=== PATIENT | female | born 1965 | race African-American/Black ===

== ENCOUNTER 2023-05-08 05:19 | Inpatient (IN) | payer OTHER ==
[2023-05-08] VITALS (46 sets, daily range): BP systolic 62–145; BP diastolic 32–89; PULSE 8–119; RESP 0–21; TEMP 94.9–103.1; O2SAT 93–100
[~2023-05-08] VITALS: Ht 157.5 cm; Wt 80.0 kg
[2023-05-08] MEDS ORDERED: CALCIUM GLUC 1,000mg/50ml-NS 50 ML IV ONE (05:30)
[2023-05-08] MEDS ORDERED: InsuLIN REG 1unit/0.01ml Soln (100units/ml) ONE (05:34)
[2023-05-08] MEDS ORDERED: EPINEPHrine HCL 250 ML IV ONE (05:44)
[2023-05-08] MEDS ORDERED: EPINEPHrine HCL 250 ML IV SCH (05:45)
[2023-05-08 05:48] LABS: Mean Corpuscular Hemoglobin 29.9 pg (28.0-32.0); Monocytes # (auto) 0.6 10 ^3/uL (0-1.3); White Blood Cell 8.3 10^3/uL (4.4-10.8)
[2023-05-08 05:49] LABS: Basophils # (auto) 0.3 10 ^3/uL (0-0.2); Basophils % (auto) 3.4 % (0.0-2.0); Eosinophils # (auto) 0.2 10 ^3/uL (0-0.8); Eosinophils % (auto) 1.8 % (0.0-7.0); Hematocrit 20.2 % (36.0-46.0); Lymphocytes # (auto) 2.8 10 ^3/uL (0.4-5.4); Lymphocytes % (auto) 33.6 % (10.0-50.0); Mean Corpuscular Hgb Conc. 30.2 g/dL (32.0-36.0); Mean Corpuscular Volume 98.7 fL (80.0-100.0); Monocytes % (auto) 7.5 % (0.0-12.0); Neutrophils # (auto) 4.5 10 ^3/uL (1.6-8.6); Neutrophils % (auto) 53.7 % (37.0-80.0); Nucleated Red Blood Cells % 0.2 %; Red Blood Cells 2.05 10^6/uL (4.0-5.20); Red Cell Distribution Width 20.3 % (11.8-14.3)
[2023-05-08 05:51] LABS: Hemoglobin 6.1 g/dL (12.2-16.2)
[2023-05-08] MEDS: EPINEPHrine HCL 250 ML IV SCH ×2 (05:52→09:14)
[2023-05-08] MEDS ORDERED: InsuLIN REG 1unit/0.01ml Soln (100units/ml) IV ONE (06:00)
[2023-05-08 06:04] LABS: Albumin 3.2 g/dL (3.2-4.8); Alkaline Phosphatase 136 U/L (46-116); Anion Gap 12 (5-15); Aspartate Aminotransferase 35 U/L (13-40); BUN/Creatinine Ratio 5.7 (10.0-20.0); Blood Urea Nitrogen 24 mg/dL (9-23); Calcium 10.5 mg/dL (8.7-10.4); Carbon Dioxide 30 mmol/L (20-30); Chloride 102 mmol/L (98-107); Glucose 203 mg/dL (74-106); Potassium 4.2 mmol/L (3.5-5.1); Sodium 144 mmol/L (136-145)
[2023-05-08 06:05] LABS: Bilirubin, Total 0.2 mg/dL (0.2-1.0); Total Protein 6.6 g/dL (5.7-8.2)
[2023-05-08] MEDS ORDERED: DOPamine 1600MCG/ML D5W 250 ML IV ONE (06:15)
[2023-05-08 06:22] LABS: Alanine Aminotransferase < 9 U/L (7-40)
[2023-05-08] MEDS ORDERED: NOREPINEPHRINE 8 MG/250ML KIT 250 ML IV ONE (06:25)
[2023-05-08] MEDS: NOREPINEPHRINE 8 MG/250ML KIT 250 ML IV SCH (06:30)
[2023-05-08] MEDS ORDERED: MORPHINE SULFATE INJ 2 MG/ml SYRG IV PRN (10:00)
[2023-05-08] MEDS ORDERED: NITROGLYCERIN 0.4 MG SL TAB SL PRN (10:00)
[2023-05-08 10:09] LABS: Base Excess 4.2 mmol/L (-2.0-2.0)
[2023-05-08] MEDS ORDERED: PANTOPRAZOLE 40 MG/10 ML VIAL INJ IV ONE (10:15)
[2023-05-08 10:54] LABS: Triglycerides 76 mg/dL (< 150)
[2023-05-08 10:55] LABS: LDL Cholesterol 56 mg/dL (< 100)
[2023-05-08 10:56] LABS: Cholesterol 122 mg/dL (< 200); HDL Cholesterol 46 mg/dL (40-59)
[2023-05-08 11:27] LABS: % Iron Saturation 49.7 % (15-50)
[2023-05-08 11:30] LABS: Folate (Folic Acid) 7.5 ng/mL (>5.38)
[2023-05-08] MEDS: DOPamine 1600MCG/ML D5W 250 ML IV SCH ×2 (11:59→16:08)
[2023-05-08] MEDS ORDERED: HEPARIN SODIUM (PORCINE) 5000 UNITS/ML 1ML VIAL SC SCH (14:00)
[2023-05-08] MEDS ORDERED: AZITHROMYCIN 500MG/ 250ML 250 ML IV SCH (14:45)
[2023-05-08] MEDS ORDERED: cefTRIAXone 1GM/50ML D5W 50 ML IV SCH (14:45)
[2023-05-08 15:38] LABS: INR 1.26 (0.9-1.15)
[2023-05-08 17:29] LABS: Anisocytosis Slight; Platelet Estimate Adequate
[2023-05-08 18:28] LABS: Basophils # (auto) 0.1 10 ^3/uL (0-0.2); Basophils % (auto) 0.8 % (0.0-2.0); Eosinophils # (auto) 0 10 ^3/uL (0-0.8); Eosinophils % (auto) 0.1 % (0.0-7.0); Hematocrit 27.2 % (36.0-46.0); Hemoglobin 9.1 g/dL (12.2-16.2); Lymphocytes # (auto) 0.4 10 ^3/uL (0.4-5.4); Lymphocytes % (auto) 4.2 % (10.0-50.0); Mean Corpuscular Hemoglobin 29.9 pg (28.0-32.0); Mean Corpuscular Hgb Conc. 33.4 g/dL (32.0-36.0); Mean Corpuscular Volume 89.5 fL (80.0-100.0); Monocytes # (auto) 0.6 10 ^3/uL (0-1.3); Monocytes % (auto) 6.9 % (0.0-12.0); Neutrophils # (auto) 8.2 10 ^3/uL (1.6-8.6); Red Blood Cells 3.04 10^6/uL (4.0-5.20); Red Cell Distribution Width 17.9 % (11.8-14.3); White Blood Cell 9.4 10^3/uL (4.4-10.8)
[2023-05-08] MEDS ORDERED: PIPERACILLIN-TAZOB 2.25GM 50 ML IV SCH (22:00)
[2023-05-08] MEDS ORDERED: PIPERACILLIN-TAZOB 3.375GM 100 ML IV SCH (22:00)
[2023-05-09] VITALS (113 sets, daily range): BP systolic 78–189; BP diastolic 50–108; PULSE 52–78; RESP 0–16; TEMP 95.5–97.7; O2SAT 96–100
[2023-05-09 00:48] LABS: Basophils # (auto) 0.1 10 ^3/uL (0-0.2); Basophils % (auto) 0.6 % (0.0-2.0); Eosinophils # (auto) 0 10 ^3/uL (0-0.8); Eosinophils % (auto) 0.1 % (0.0-7.0); Hematocrit 26.1 % (36.0-46.0); Hemoglobin 8.8 g/dL (12.2-16.2); Lymphocytes # (auto) 0.5 10 ^3/uL (0.4-5.4); Lymphocytes % (auto) 4.4 % (10.0-50.0); Mean Corpuscular Hemoglobin 30.3 pg (28.0-32.0); Mean Corpuscular Hgb Conc. 33.7 g/dL (32.0-36.0); Mean Corpuscular Volume 89.7 fL (80.0-100.0); Monocytes # (auto) 0.5 10 ^3/uL (0-1.3); Monocytes % (auto) 4.5 % (0.0-12.0); Neutrophils # (auto) 9.7 10 ^3/uL (1.6-8.6); Neutrophils % (auto) 90.4 % (37.0-80.0); Nucleated Red Blood Cells % 0.1 %; Red Cell Distribution Width 18.4 % (11.8-14.3); White Blood Cell 10.7 10^3/uL (4.4-10.8)
[2023-05-09 01:01] LABS: Albumin 3.2 g/dL (3.2-4.8); Alkaline Phosphatase 122 U/L (46-116); Anion Gap 9 (5-15); Aspartate Aminotransferase 56 U/L (13-40); BUN/Creatinine Ratio 6.5 (10.0-20.0); Bilirubin, Total 0.3 mg/dL (0.2-1.0); Blood Urea Nitrogen 31 mg/dL (9-23); Calcium 8.1 mg/dL (8.5-10.1); Carbon Dioxide 28 mmol/L (20-30); Chloride 101 mmol/L (98-107); Glucose 174 mg/dL (74-106); Potassium 4.1 mmol/L (3.5-5.1); Sodium 138 mmol/L (136-145); Total Protein 6.7 g/dL (5.7-8.2)
[2023-05-09 01:02] LABS: Alanine Aminotransferase < 9 U/L (7-40)
[2023-05-09] MEDS ORDERED: DexAMETHasone SOD PHOS 10MG/1ML VIAL INJ IV ONE (04:45)
[2023-05-09] MEDS ORDERED: MANNITOL 20% SOLN 100 gm/500ml 300 ML IV ONE (04:45)
[2023-05-09] MEDS ORDERED: MANNITOL 20 % (20GM/100ML) 500 ML IV ONE (05:07)
[2023-05-09 06:46] LABS: Basophils # (auto) 0.1 10 ^3/uL (0-0.2); Eosinophils # (auto) 0 10 ^3/uL (0-0.8); Eosinophils % (auto) 0.2 % (0.0-7.0); Monocytes # (auto) 0.4 10 ^3/uL (0-1.3)
[2023-05-09 06:49] LABS: Basophils % (auto) 0.6 % (0.0-2.0); Hematocrit 21.2 % (36.0-46.0); Hemoglobin 7.2 g/dL (12.2-16.2); Lymphocytes # (auto) 0.3 10 ^3/uL (0.4-5.4); Lymphocytes % (auto) 3.5 % (10.0-50.0); Mean Corpuscular Hemoglobin 30.2 pg (28.0-32.0); Mean Corpuscular Hgb Conc. 33.9 g/dL (32.0-36.0); Mean Corpuscular Volume 89.1 fL (80.0-100.0); Monocytes % (auto) 3.9 % (0.0-12.0); Neutrophils % (auto) 91.8 % (37.0-80.0); Red Blood Cells 2.38 10^6/uL (4.0-5.20); Red Cell Distribution Width 18.2 % (11.8-14.3); White Blood Cell 9.8 10^3/uL (4.4-10.8)
[2023-05-09] MEDS ORDERED: SODIUM CHL 0.9% 1000 ML BAG XX ONE (07:00)
[2023-05-09] MEDS ORDERED: MAGNESIUM SULFATE 1GM/100ML 100 ML IV ONE (07:00)
[2023-05-09 07:05] LABS: Albumin 2.6 g/dL (3.2-4.8); Alkaline Phosphatase 109 U/L (46-116); Anion Gap 8 (5-15); Aspartate Aminotransferase 60 U/L (13-40); BUN/Creatinine Ratio 7.1 (10.0-20.0); Bilirubin, Total 0.2 mg/dL (0.2-1.0); Blood Urea Nitrogen 35 mg/dL (9-23); Calcium 7.3 mg/dL (8.7-10.4); Carbon Dioxide 29 mmol/L (20-30); Chloride 99 mmol/L (98-107); Glucose 165 mg/dL (74-106); Sodium 136 mmol/L (136-145)
[2023-05-09 07:06] LABS: Alanine Aminotransferase < 9 U/L (7-40); Total Protein 5.6 g/dL (5.7-8.2)
[2023-05-09 08:45] LABS: Base Excess 3.1 mmol/L (-2.0-2.0)
[2023-05-09] MEDS ORDERED: VANCOMYCIN 1GM/250ML 250 ML IV ONE ×3 (09:00→17:00)
[2023-05-09] MEDS ORDERED: VANCOMYCIN PER PHARMACY 0 MG IV SCH (09:00)
[2023-05-09] MEDS ORDERED: HEPARIN SODIUM (PORCINE) 5000 UNITS/ML 1ML VIAL SC SCH (10:00)
[2023-05-09] MEDS ORDERED: PANTOPRAZOLE 40 MG/10 ML VIAL INJ IV SCH (10:00)
[2023-05-09] MEDS ORDERED: ALBUMIN 25% 100 ML IV SCH (11:45)
[2023-05-09 12:45] LABS: Basophils # (auto) 0 10 ^3/uL (0-0.2); Basophils % (auto) 0.3 % (0.0-2.0); Eosinophils # (auto) 0 10 ^3/uL (0-0.8); Hematocrit 23.2 % (36.0-46.0); Hemoglobin 7.7 g/dL (12.2-16.2); Lymphocytes # (auto) 0.2 10 ^3/uL (0.4-5.4); Lymphocytes % (auto) 2.5 % (10.0-50.0); Mean Corpuscular Hemoglobin 29.9 pg (28.0-32.0); Mean Corpuscular Hgb Conc. 33.3 g/dL (32.0-36.0); Mean Corpuscular Volume 89.7 fL (80.0-100.0); Monocytes # (auto) 0.2 10 ^3/uL (0-1.3); Monocytes % (auto) 2.5 % (0.0-12.0); Neutrophils % (auto) 94.7 % (37.0-80.0); Red Blood Cells 2.58 10^6/uL (4.0-5.20); Red Cell Distribution Width 18.6 % (11.8-14.3); White Blood Cell 9.5 10^3/uL (4.4-10.8)
[2023-05-09] MEDS: PANTOPRAZOLE 40 MG/10 ML VIAL INJ IV SCH (15:30)
[2023-05-09] MEDS: PIPERACILLIN-TAZOB 3.375GM 100 ML IV SCH (15:31)
[2023-05-09 19:10] LABS: Basophils # (auto) 0 10 ^3/uL (0-0.2); Eosinophils # (auto) 0 10 ^3/uL (0-0.8); Hemoglobin 7.4 g/dL (12.2-16.2); Lymphocytes # (auto) 0.4 10 ^3/uL (0.4-5.4); Mean Corpuscular Volume 89.4 fL (80.0-100.0); Nucleated Red Blood Cells % 0.1 %
[2023-05-09 19:11] LABS: Basophils % (auto) 0.3 % (0.0-2.0); Lymphocytes % (auto) 4.1 % (10.0-50.0); Mean Corpuscular Hemoglobin 30.1 pg (28.0-32.0); Mean Corpuscular Hgb Conc. 33.7 g/dL (32.0-36.0); Monocytes # (auto) 0.4 10 ^3/uL (0-1.3); Neutrophils # (auto) 9.7 10 ^3/uL (1.6-8.6); Neutrophils % (auto) 91.6 % (37.0-80.0); Red Blood Cells 2.46 10^6/uL (4.0-5.20); Red Cell Distribution Width 18.4 % (11.8-14.3); White Blood Cell 10.6 10^3/uL (4.4-10.8)
[2023-05-09] MEDS ORDERED: EPOETIN ALFA-EPBX 10,000 UNIT/1ML VIAL SC ONE (21:00)
[2023-05-09] MEDS: DOPamine 1600MCG/ML D5W 250 ML IV SCH (21:05)
[2023-05-10] VITALS (115 sets, daily range): BP systolic 73–154; BP diastolic 36–78; PULSE 55–83; RESP 0–14; TEMP 97–98.6; O2SAT 96–100
[2023-05-10 04:31] LABS: Alkaline Phosphatase 129 U/L (46-116); Anion Gap 9 (5-15); Aspartate Aminotransferase 121 U/L (13-40); BUN/Creatinine Ratio 6.9 (10.0-20.0); Bilirubin, Total 0.2 mg/dL (0.2-1.0); Blood Urea Nitrogen 29 mg/dL (9-23); Calcium 7.8 mg/dL (8.7-10.4); Carbon Dioxide 29 mmol/L (20-30); Chloride 99 mmol/L (98-107); Glucose 116 mg/dL (74-106); Magnesium 1.8 mg/dL (1.6-2.6); Sodium 137 mmol/L (136-145); Total Protein 6.1 g/dL (5.7-8.2)
[2023-05-10 04:37] LABS: Alanine Aminotransferase < 9 U/L (7-40)
[2023-05-10 04:48] LABS: INR 1.19 (0.9-1.15); Partial Thromboplastin Time 33.8 SEC (24.5-34.5); Prothrombin Time 12.4 sec (9.3-11.8)
[2023-05-10 04:50] LABS: Triglycerides 160 mg/dL (< 150)
[2023-05-10 04:51] LABS: LDL Cholesterol 47 mg/dL (< 100)
[2023-05-10 04:52] LABS: Cholesterol 116 mg/dL (< 200); HDL Cholesterol 38 mg/dL (40-59)
[2023-05-10 05:05] LABS: Lipase 32 U/L (12-53)
[2023-05-10] MEDS: PIPERACILLIN-TAZOB 3.375GM 100 ML IV SCH ×2 (05:35→17:13)
[2023-05-10] MEDS: EPINEPHrine HCL 250 ML IV SCH (06:00)
[2023-05-10] MEDS: NOREPINEPHRINE 8 MG/250ML KIT 250 ML IV SCH (06:30)
[2023-05-10 08:16] LABS: Base Excess 3.1 mmol/L (-2.0-2.0)
[2023-05-10] MEDS ORDERED: VANCOMYCIN 1GM/250ML 250 ML IV ONE (11:00)
[2023-05-10] MEDS: DOPamine 1600MCG/ML D5W 250 ML IV SCH (13:45)
[2023-05-10] MEDS ORDERED: CEFEPIME 2GM/50ML NS 50 ML IV SCH (17:00)
[2023-05-10] MEDS: PANTOPRAZOLE 40 MG/10 ML VIAL INJ IV SCH (17:13)
[2023-05-10] MEDS ORDERED: ACETAMINOPHEN 325 MG TAB PO ONE (19:00)
[2023-05-11] VITALS (124 sets, daily range): BP systolic 73–195; BP diastolic 39–80; PULSE 56–77; RESP 0–16; TEMP 95.4–99.1; O2SAT 91–100
[2023-05-11 04:14] LABS: Basophils # (auto) 0.1 10 ^3/uL (0-0.2); Eosinophils # (auto) 0.6 10 ^3/uL (0-0.8); Hematocrit 20.3 % (36.0-46.0); Lymphocytes # (auto) 0.8 10 ^3/uL (0.4-5.4); Mean Corpuscular Volume 91.5 fL (80.0-100.0)
[2023-05-11 04:16] LABS: Basophils % (auto) 1.3 % (0.0-2.0); Eosinophils % (auto) 5.1 % (0.0-7.0); Lymphocytes % (auto) 7.5 % (10.0-50.0); Mean Corpuscular Hemoglobin 30.5 pg (28.0-32.0); Mean Corpuscular Hgb Conc. 33.3 g/dL (32.0-36.0); Monocytes # (auto) 0.8 10 ^3/uL (0-1.3); Monocytes % (auto) 7.2 % (0.0-12.0); Neutrophils # (auto) 8.8 10 ^3/uL (1.6-8.6); Neutrophils % (auto) 78.9 % (37.0-80.0); Nucleated Red Blood Cells % 0.1 %; Red Blood Cells 2.22 10^6/uL (4.0-5.20); Red Cell Distribution Width 18.4 % (11.8-14.3); White Blood Cell 11.1 10^3/uL (4.4-10.8)
[2023-05-11 04:23] LABS: Hemoglobin 6.8 g/dL (12.2-16.2)
[2023-05-11 04:42] LABS: Alkaline Phosphatase 156 U/L (46-116); Anion Gap 8 (5-15); Aspartate Aminotransferase 314 U/L (13-40); BUN/Creatinine Ratio 6.9 (10.0-20.0); Bilirubin, Total 0.3 mg/dL (0.2-1.0); Blood Urea Nitrogen 36 mg/dL (9-23); Carbon Dioxide 30 mmol/L (20-30); Chloride 99 mmol/L (98-107); Glucose 99 mg/dL (74-106); Magnesium 1.8 mg/dL (1.6-2.6); Potassium 3.7 mmol/L (3.5-5.1); Sodium 137 mmol/L (136-145); Total Protein 6.2 g/dL (5.7-8.2)
[2023-05-11 04:51] LABS: Alanine Aminotransferase < 9 U/L (7-40)
[2023-05-11] MEDS: PIPERACILLIN-TAZOB 3.375GM 100 ML IV SCH ×2 (05:18→17:52)
[2023-05-11] MEDS: EPINEPHrine HCL 250 ML IV SCH (06:00)
[2023-05-11] MEDS: DOPamine 1600MCG/ML D5W 250 ML IV SCH ×2 (06:25→23:05)
[2023-05-11] MEDS: NOREPINEPHRINE 8 MG/250ML KIT 250 ML IV SCH (06:30)
[2023-05-11] MEDS ORDERED: SODIUM CHL 0.9% 1000 ML BAG XX ONE (07:00)
[2023-05-11 09:41] LABS: Base Excess 4.5 mmol/L (-2.0-2.0)
[2023-05-11] MEDS ORDERED: VANCOMYCIN 500 MG in D5W 5% 100 ML IV ONE (13:00)
[2023-05-11 13:12] LABS: Basophils # (auto) 0.2 10 ^3/uL (0-0.2); Hemoglobin 7.1 g/dL (12.2-16.2); Monocytes # (auto) 1.1 10 ^3/uL (0-1.3)
[2023-05-11 13:13] LABS: Basophils % (auto) 1.2 % (0.0-2.0); Eosinophils # (auto) 0.8 10 ^3/uL (0-0.8); Eosinophils % (auto) 6.1 % (0.0-7.0); Hematocrit 21.9 % (36.0-46.0); Lymphocytes # (auto) 0.8 10 ^3/uL (0.4-5.4); Lymphocytes % (auto) 6.2 % (10.0-50.0); Mean Corpuscular Hemoglobin 29.5 pg (28.0-32.0); Mean Corpuscular Hgb Conc. 32.3 g/dL (32.0-36.0); Mean Corpuscular Volume 91.6 fL (80.0-100.0); Monocytes % (auto) 8.6 % (0.0-12.0); Neutrophils # (auto) 9.9 10 ^3/uL (1.6-8.6); Neutrophils % (auto) 77.9 % (37.0-80.0); Nucleated Red Blood Cells % 0.1 %; Red Cell Distribution Width 18.3 % (11.8-14.3); White Blood Cell 12.7 10^3/uL (4.4-10.8)
[2023-05-11] MEDS: PANTOPRAZOLE 40 MG/10 ML VIAL INJ IV SCH (17:52)
[2023-05-11] MEDS ORDERED: EPOETIN ALFA-EPBX 10,000 UNIT/1ML VIAL SC ONE (21:00)
[2023-05-12] VITALS (110 sets, daily range): BP systolic 78–146; BP diastolic 43–67; PULSE 65–84; RESP 0–19; TEMP 96.8–99.3; O2SAT 90–100
[2023-05-12 04:04] LABS: Alkaline Phosphatase 170 U/L (46-116); Anion Gap 7 (5-15); Aspartate Aminotransferase 450 U/L (13-40); Calcium 8.4 mg/dL (8.5-10.1); Carbon Dioxide 31 mmol/L (20-30); Chloride 102 mmol/L (98-107); Glucose 96 mg/dL (74-106); Potassium 3.7 mmol/L (3.5-5.1); Sodium 140 mmol/L (136-145)
[2023-05-12 04:05] LABS: Bilirubin, Total 0.4 mg/dL (0.2-1.0); Total Protein 6.3 g/dL (5.7-8.2)
[2023-05-12] MEDS: NOREPINEPHRINE 8 MG/250ML KIT 250 ML IV SCH ×2 (04:17→19:43)
[2023-05-12 04:33] LABS: Basophils # (auto) 0.1 10 ^3/uL (0-0.2); Basophils % (auto) 0.9 % (0.0-2.0); Hemoglobin 7.3 g/dL (12.2-16.2); Neutrophils # (auto) 10.2 10 ^3/uL (1.6-8.6); White Blood Cell 13.1 10^3/uL (4.4-10.8)
[2023-05-12 04:36] LABS: Eosinophils # (auto) 0.7 10 ^3/uL (0-0.8); Eosinophils % (auto) 5.4 % (0.0-7.0); Hematocrit 22.6 % (36.0-46.0); Lymphocytes # (auto) 0.8 10 ^3/uL (0.4-5.4); Lymphocytes % (auto) 6.5 % (10.0-50.0); Mean Corpuscular Hemoglobin 29.9 pg (28.0-32.0); Mean Corpuscular Hgb Conc. 32.5 g/dL (32.0-36.0); Mean Corpuscular Volume 91.9 fL (80.0-100.0); Monocytes # (auto) 1.3 10 ^3/uL (0-1.3); Monocytes % (auto) 9.5 % (0.0-12.0); Neutrophils % (auto) 77.7 % (37.0-80.0); Nucleated Red Blood Cells % 0.4 %; Red Blood Cells 2.46 10^6/uL (4.0-5.20); Red Cell Distribution Width 18.1 % (11.8-14.3)
[2023-05-12 04:45] LABS: Alanine Aminotransferase < 9 U/L (7-40); Blood Urea Nitrogen 23 mg/dL (9-23)
[2023-05-12 04:46] LABS: Magnesium 1.7 mg/dL (1.6-2.6)
[2023-05-12] MEDS: PIPERACILLIN-TAZOB 3.375GM 100 ML IV SCH ×2 (04:46→16:58)
[2023-05-12] MEDS: EPINEPHrine HCL 250 ML IV SCH (06:00)
[2023-05-12 07:06] LABS: Base Excess 6.2 mmol/L (-2.0-2.0)
[2023-05-12] MEDS: DOPamine 1600MCG/ML D5W 250 ML IV SCH (15:45)
[2023-05-12] MEDS: PANTOPRAZOLE 40 MG/10 ML VIAL INJ IV SCH (16:58)
[2023-05-13] VITALS (110 sets, daily range): BP systolic 79–185; BP diastolic 43–90; PULSE 63–84; RESP 0–20; TEMP 96.8–99.1; O2SAT 90–100
[2023-05-13 04:21] LABS: Basophils # (auto) 0.1 10 ^3/uL (0-0.2); Basophils % (auto) 0.9 % (0.0-2.0); Eosinophils # (auto) 0.8 10 ^3/uL (0-0.8); Monocytes # (auto) 1.5 10 ^3/uL (0-1.3); Neutrophils # (auto) 10.2 10 ^3/uL (1.6-8.6); Nucleated Red Blood Cells % 0.1 %; White Blood Cell 13.6 10^3/uL (4.4-10.8)
[2023-05-13 04:24] LABS: Eosinophils % (auto) 5.7 % (0.0-7.0); Hematocrit 22.9 % (36.0-46.0); Hemoglobin 7.6 g/dL (12.2-16.2); Mean Corpuscular Hemoglobin 30.5 pg (28.0-32.0); Mean Corpuscular Volume 92.6 fL (80.0-100.0); Neutrophils % (auto) 75.4 % (37.0-80.0); Red Blood Cells 2.47 10^6/uL (4.0-5.20); Red Cell Distribution Width 17.9 % (11.8-14.3)
[2023-05-13] MEDS: PIPERACILLIN-TAZOB 3.375GM 100 ML IV SCH ×2 (04:44→17:54)
[2023-05-13 04:45] LABS: Albumin 3.1 g/dL (3.2-4.8); Alkaline Phosphatase 277 U/L (46-116); Anion Gap 10 (5-15); Aspartate Aminotransferase 393 U/L (13-40); BUN/Creatinine Ratio 5.9 (10.0-20.0); Bilirubin, Total 0.4 mg/dL (0.2-1.0); Blood Urea Nitrogen 30 mg/dL (9-23); Calcium 8.4 mg/dL (8.7-10.4); Carbon Dioxide 29 mmol/L (20-30); Chloride 100 mmol/L (98-107); Glucose 62 mg/dL (74-106); Potassium 3.5 mmol/L (3.5-5.1); Sodium 139 mmol/L (136-145); Total Protein 6.5 g/dL (5.7-8.2)
[2023-05-13 04:57] LABS: Alanine Aminotransferase < 9 U/L (7-40)
[2023-05-13] MEDS: EPINEPHrine HCL 250 ML IV SCH (06:00)
[2023-05-13 07:20] LABS: Base Excess 3.8 mmol/L (-2.0-2.0)
[2023-05-13] MEDS: DOPamine 1600MCG/ML D5W 250 ML IV SCH (07:59)
[2023-05-13] MEDS ORDERED: TPN PER PHARMACY 0 ML IV SCH ×2 (14:15→20:00)
[2023-05-13 14:43] LABS: Magnesium 1.8 mg/dL (1.6-2.6)
[2023-05-13 14:45] LABS: Phosphorus 3.5 mg/dL (2.4-5.1)
[2023-05-13] MEDS: NOREPINEPHRINE 8 MG/250ML KIT 250 ML IV SCH (14:48)
[2023-05-13] MEDS ORDERED: POTASSIUM CHL 20MEQ/100ML 100 ML IV ONE (15:45)
[2023-05-13] MEDS ORDERED: MAGNESIUM SULFATE 1GM/100ML 100 ML IV ONE (15:55)
[2023-05-13] MEDS: MAGNESIUM SULFATE 1GM/100ML 100 ML IV SCH ×2 (16:27→17:53)
[2023-05-13] MEDS: PANTOPRAZOLE 40 MG/10 ML VIAL INJ IV SCH (17:54)
[2023-05-13] MEDS ORDERED: AMINO ACID INFUSION IN D10W 1,000 ML IV NR (20:00)
[2023-05-13] MEDS: InsuLIN REG 1unit/0.01ml Soln (100units/ml) SC SCH (23:35)
[2023-05-13] MEDS: ACCU-CHEK COMFORT CURVE STRIP VI SCH (23:35)
[2023-05-14] VITALS (108 sets, daily range): BP systolic 80–172; BP diastolic 44–105; PULSE 55–80; RESP 0–17; TEMP 96.6–97.9; O2SAT 94–100
[2023-05-14] MEDS ORDERED: DEXTROSE (50%) 50ML SYRG IV SCH
[2023-05-14] MEDS: DOPamine 1600MCG/ML D5W 250 ML IV SCH ×2 (01:05→17:45)
[2023-05-14 04:26] LABS: Alkaline Phosphatase 352 U/L (46-116); Anion Gap 9 (5-15); Aspartate Aminotransferase 315 U/L (13-40); BUN/Creatinine Ratio 6.3 (10.0-20.0); Blood Urea Nitrogen 37 mg/dL (9-23); Calcium 8.3 mg/dL (8.7-10.4); Carbon Dioxide 29 mmol/L (20-30); Chloride 99 mmol/L (98-107); Glucose 92 mg/dL (74-106); Magnesium 2.1 mg/dL (1.6-2.6); Potassium 3.6 mmol/L (3.5-5.1); Sodium 137 mmol/L (136-145)
[2023-05-14 04:27] LABS: Bilirubin, Total 0.4 mg/dL (0.2-1.0); Phosphorus 3.7 mg/dL (2.4-5.1); Total Protein 6.4 g/dL (5.7-8.2)
[2023-05-14 04:28] LABS: Alanine Aminotransferase < 9 U/L (7-40)
[2023-05-14 04:37] LABS: Triglycerides 94 mg/dL (< 150)
[2023-05-14] MEDS: PIPERACILLIN-TAZOB 3.375GM 100 ML IV SCH ×2 (05:14→19:49)
[2023-05-14] MEDS: NOREPINEPHRINE 8 MG/250ML KIT 250 ML IV SCH (05:21)
[2023-05-14] MEDS: ACCU-CHEK COMFORT CURVE STRIP VI SCH ×3 (05:36→19:37)
[2023-05-14] MEDS: EPINEPHrine HCL 250 ML IV SCH (05:37)
[2023-05-14] MEDS: InsuLIN REG 1unit/0.01ml Soln (100units/ml) SC SCH ×3 (05:37→18:00)
[2023-05-14 07:51] LABS: Base Excess 0.3 mmol/L (-2.0-2.0)
[2023-05-14] MEDS ORDERED: SODIUM CHL 0.9% 1000 ML BAG XX ONE (15:30)
[2023-05-14] MEDS ORDERED: VANCOMYCIN 500 MG in D5W 5% 100 ML IV ONE (17:00)
[2023-05-14] MEDS: PANTOPRAZOLE 40 MG/10 ML VIAL INJ IV SCH (19:44)
[2023-05-14] MEDS ORDERED: TPN PER PHARMACY IV NR ×10 (20:00)
[2023-05-14] MEDS ORDERED: EPOETIN ALFA-EPBX 10,000 UNIT/1ML VIAL SC ONE (21:00)
[2023-05-15] VITALS (114 sets, daily range): BP systolic 91–159; BP diastolic 47–81; PULSE 54–85; RESP 0–19; TEMP 96.8–99; O2SAT 93–100
[2023-05-15] MEDS: InsuLIN REG 1unit/0.01ml Soln (100units/ml) SC SCH ×4 (00:13→18:00)
[2023-05-15] MEDS: ACCU-CHEK COMFORT CURVE STRIP VI SCH ×5 (00:13→23:34)
[2023-05-15] MEDS: NOREPINEPHRINE 8 MG/250ML KIT 250 ML IV SCH (02:51)
[2023-05-15 04:17] LABS: Eosinophils # (auto) 0.6 10 ^3/uL (0-0.8); Hemoglobin 7.3 g/dL (12.2-16.2); Lymphocytes # (auto) 0.9 10 ^3/uL (0.4-5.4); Monocytes # (auto) 0.9 10 ^3/uL (0-1.3); Nucleated Red Blood Cells % 0.2 %; White Blood Cell 8.3 10^3/uL (4.4-10.8)
[2023-05-15 04:21] LABS: Basophils # (auto) 0 10 ^3/uL (0-0.2); Basophils % (auto) 0.5 % (0.0-2.0); Eosinophils % (auto) 7.4 % (0.0-7.0); Hematocrit 22.1 % (36.0-46.0); Lymphocytes % (auto) 11.3 % (10.0-50.0); Mean Corpuscular Hgb Conc. 32.9 g/dL (32.0-36.0); Mean Corpuscular Volume 91.3 fL (80.0-100.0); Monocytes % (auto) 10.8 % (0.0-12.0); Neutrophils # (auto) 5.8 10 ^3/uL (1.6-8.6); Red Blood Cells 2.42 10^6/uL (4.0-5.20); Red Cell Distribution Width 17.7 % (11.8-14.3)
[2023-05-15 04:34] LABS: Albumin 3.1 g/dL (3.2-4.8); Alkaline Phosphatase 453 U/L (46-116); Anion Gap 9 (5-15); Aspartate Aminotransferase 249 U/L (13-40); BUN/Creatinine Ratio 6.5 (10.0-20.0); Bilirubin, Total 0.5 mg/dL (0.2-1.0); Blood Urea Nitrogen 31 mg/dL (9-23); Calcium 8.3 mg/dL (8.7-10.4); Carbon Dioxide 28 mmol/L (20-30); Chloride 99 mmol/L (98-107); Glucose 143 mg/dL (74-106); Phosphorus 2.6 mg/dL (2.4-5.1); Potassium 3.3 mmol/L (3.5-5.1); Sodium 136 mmol/L (136-145); Total Protein 6.5 g/dL (5.7-8.2)
[2023-05-15 04:36] LABS: Alanine Aminotransferase < 9 U/L (7-40)
[2023-05-15] MEDS: PIPERACILLIN-TAZOB 3.375GM 100 ML IV SCH ×2 (04:48→18:41)
[2023-05-15] MEDS: EPINEPHrine HCL 250 ML IV SCH (05:59)
[2023-05-15] MEDS ORDERED: POTASSIUM PHOSPHATE 22 MEQ in SODIUM CHL 0.9% 100 ML IV ONE (10:00)
[2023-05-15] MEDS: DOPamine 1600MCG/ML D5W 250 ML IV SCH (10:25)
[2023-05-15] MEDS: PANTOPRAZOLE 40 MG/10 ML VIAL INJ IV SCH (18:41)
[2023-05-15] MEDS ORDERED: TPN PER PHARMACY IV NR ×10 (20:00)
[2023-05-16] VITALS (112 sets, daily range): BP systolic 88–157; BP diastolic 45–78; PULSE 55–64; RESP 0–41; TEMP 93.2–99.1; O2SAT 15–100
[2023-05-16] MEDS: InsuLIN REG 1unit/0.01ml Soln (100units/ml) SC SCH ×5 (00:08→23:54)
[2023-05-16] MEDS: NOREPINEPHRINE 8 MG/250ML KIT 250 ML IV SCH (00:09)
[2023-05-16] MEDS: DOPamine 1600MCG/ML D5W 250 ML IV SCH ×2 (03:05→19:45)
[2023-05-16 04:18] LABS: Basophils # (auto) 0 10 ^3/uL (0-0.2); Eosinophils # (auto) 0.6 10 ^3/uL (0-0.8); Mean Corpuscular Hemoglobin 30.1 pg (28.0-32.0); Mean Corpuscular Hgb Conc. 32.7 g/dL (32.0-36.0); Nucleated Red Blood Cells % 0.2 %; White Blood Cell 8.5 10^3/uL (4.4-10.8)
[2023-05-16 04:20] LABS: Basophils % (auto) 0.4 % (0.0-2.0); Eosinophils % (auto) 6.8 % (0.0-7.0); Lymphocytes # (auto) 0.9 10 ^3/uL (0.4-5.4); Lymphocytes % (auto) 10.1 % (10.0-50.0); Mean Corpuscular Volume 92.1 fL (80.0-100.0); Monocytes # (auto) 1.1 10 ^3/uL (0-1.3); Monocytes % (auto) 12.8 % (0.0-12.0); Neutrophils % (auto) 69.9 % (37.0-80.0); Red Blood Cells 2.28 10^6/uL (4.0-5.20); Red Cell Distribution Width 17.7 % (11.8-14.3)
[2023-05-16 04:21] LABS: Hemoglobin 6.9 g/dL (12.2-16.2)
[2023-05-16 04:40] LABS: Alkaline Phosphatase 642 U/L (46-116); Anion Gap 8 (5-15); Aspartate Aminotransferase 198 U/L (13-40); BUN/Creatinine Ratio 8.2 (10.0-20.0); Calcium 8.2 mg/dL (8.7-10.4); Carbon Dioxide 26 mmol/L (20-30); Chloride 99 mmol/L (98-107); Glucose 167 mg/dL (74-106); Magnesium 2.1 mg/dL (1.6-2.6); Potassium 3.4 mmol/L (3.5-5.1); Sodium 133 mmol/L (136-145)
[2023-05-16 04:41] LABS: Bilirubin, Total 0.4 mg/dL (0.2-1.0); Phosphorus 3.2 mg/dL (2.4-5.1); Total Protein 6.5 g/dL (5.7-8.2)
[2023-05-16 04:42] LABS: Blood Urea Nitrogen 46 mg/dL (9-23)
[2023-05-16 04:43] LABS: Alanine Aminotransferase < 9 U/L (7-40)
[2023-05-16] MEDS: PIPERACILLIN-TAZOB 3.375GM 100 ML IV SCH ×2 (05:34→17:14)
[2023-05-16 05:49] LABS: Basophils # (auto) 0 10 ^3/uL (0-0.2); Basophils % (auto) 0.5 % (0.0-2.0); Eosinophils # (auto) 0.6 10 ^3/uL (0-0.8); Eosinophils % (auto) 6.6 % (0.0-7.0); Hematocrit 21.4 % (36.0-46.0); Hemoglobin 7.2 g/dL (12.2-16.2); Lymphocytes % (auto) 11.1 % (10.0-50.0); Mean Corpuscular Hemoglobin 30.8 pg (28.0-32.0); Mean Corpuscular Hgb Conc. 33.5 g/dL (32.0-36.0); Mean Corpuscular Volume 91.9 fL (80.0-100.0); Monocytes # (auto) 1.1 10 ^3/uL (0-1.3); Monocytes % (auto) 12.4 % (0.0-12.0); Neutrophils % (auto) 69.4 % (37.0-80.0); Nucleated Red Blood Cells % 0.3 %; Red Blood Cells 2.33 10^6/uL (4.0-5.20); Red Cell Distribution Width 17.8 % (11.8-14.3); White Blood Cell 8.7 10^3/uL (4.4-10.8)
[2023-05-16] MEDS: EPINEPHrine HCL 250 ML IV SCH (06:00)
[2023-05-16] MEDS: ACCU-CHEK COMFORT CURVE STRIP VI SCH ×4 (06:26→23:54)
[2023-05-16 07:25] LABS: Base Excess 0.6 mmol/L (-2.0-2.0)
[2023-05-16] MEDS ORDERED: POTASSIUM CHL 20MEQ/100ML 100 ML IV ONE (09:15)
[2023-05-16] MEDS ORDERED: IOHEXOL 350 MG/ML 100ML IJ ONE (11:50)
[2023-05-16] MEDS: ALBUMIN 25% 100 ML IV PRN ×2 (14:40→16:05)
[2023-05-16] MEDS ORDERED: SODIUM CHL 0.9% 1000 ML BAG XX ONE (14:45)
[2023-05-16] MEDS ORDERED: ALBUMIN 25% 200 ML IV ONE (14:53)
[2023-05-16] MEDS: PANTOPRAZOLE 40 MG/10 ML VIAL INJ IV SCH (17:14)
[2023-05-16] MEDS: TPN PER PHARMACY IV NR ×11 (19:58)
[2023-05-16] MEDS ORDERED: EPOETIN ALFA-EPBX 10,000 UNIT/1ML VIAL SC ONE (21:00)
[2023-05-17] VITALS (112 sets, daily range): BP systolic 84–200; BP diastolic 44–101; PULSE 51–65; RESP 0–20; TEMP 96.8–99.5; O2SAT 96–100
[2023-05-17 04:25] LABS: Basophils # (auto) 0 10 ^3/uL (0-0.2); Basophils % (auto) 0.5 % (0.0-2.0); White Blood Cell 8.1 10^3/uL (4.4-10.8)
[2023-05-17 04:41] LABS: Eosinophils # (auto) 0.6 10 ^3/uL (0-0.8); Hematocrit 19.6 % (36.0-46.0); Lymphocytes % (auto) 12.1 % (10.0-50.0); Mean Corpuscular Hemoglobin 30.3 pg (28.0-32.0); Mean Corpuscular Hgb Conc. 33.2 g/dL (32.0-36.0); Mean Corpuscular Volume 91.3 fL (80.0-100.0); Monocytes % (auto) 12.1 % (0.0-12.0); Neutrophils # (auto) 5.5 10 ^3/uL (1.6-8.6); Neutrophils % (auto) 68.3 % (37.0-80.0); Nucleated Red Blood Cells % 0.2 %; Red Blood Cells 2.15 10^6/uL (4.0-5.20); Red Cell Distribution Width 17.6 % (11.8-14.3)
[2023-05-17 04:43] LABS: Albumin 3.4 g/dL (3.2-4.8); Alkaline Phosphatase 766 U/L (46-116); Anion Gap 7 (5-15); Aspartate Aminotransferase 174 U/L (13-40); Bilirubin, Total 0.5 mg/dL (0.2-1.0); Blood Urea Nitrogen 38 mg/dL (9-23); Calcium 8.7 mg/dL (8.7-10.4); Carbon Dioxide 27 mmol/L (20-30); Chloride 101 mmol/L (98-107); Glucose 136 mg/dL (74-106); Magnesium 2.1 mg/dL (1.6-2.6); Phosphorus 2.6 mg/dL (2.4-5.1); Potassium 3.9 mmol/L (3.5-5.1); Sodium 135 mmol/L (136-145); Total Protein 6.6 g/dL (5.7-8.2)
[2023-05-17 04:47] LABS: Alanine Aminotransferase < 9 U/L (7-40)
[2023-05-17 04:48] LABS: Hemoglobin 6.5 g/dL (12.2-16.2)
[2023-05-17] MEDS: PIPERACILLIN-TAZOB 3.375GM 100 ML IV SCH ×2 (05:30→17:22)
[2023-05-17] MEDS: ACCU-CHEK COMFORT CURVE STRIP VI SCH ×3 (05:30→17:22)
[2023-05-17] MEDS: InsuLIN REG 1unit/0.01ml Soln (100units/ml) SC SCH ×3 (05:39→17:32)
[2023-05-17] MEDS: EPINEPHrine HCL 250 ML IV SCH (05:46)
[2023-05-17 08:24] LABS: Base Excess 0.1 mmol/L (-2.0-2.0)
[2023-05-17] MEDS: DOPamine 1600MCG/ML D5W 250 ML IV SCH ×2 (12:25→19:38)
[2023-05-17] MEDS: NOREPINEPHRINE 8 MG/250ML KIT 250 ML IV SCH ×2 (14:15→20:15)
[2023-05-17] MEDS: PANTOPRAZOLE 40 MG/10 ML VIAL INJ IV SCH (17:21)
[2023-05-17] MEDS ORDERED: TPN PER PHARMACY IV NR ×11 (20:00)
[2023-05-17] MEDS: TPN PER PHARMACY IV NR ×11 (20:11)
[2023-05-18] VITALS (113 sets, daily range): BP systolic 96–195; BP diastolic 42–85; PULSE 54–90; RESP 0–20; TEMP 95–99.9; O2SAT 94–100
[2023-05-18] MEDS: ACCU-CHEK COMFORT CURVE STRIP VI SCH ×5 (00:42→23:56)
[2023-05-18] MEDS: InsuLIN REG 1unit/0.01ml Soln (100units/ml) SC SCH ×4 (00:45→17:51)
[2023-05-18 04:04] LABS: Basophils # (auto) 0.1 10 ^3/uL (0-0.2); White Blood Cell 10.7 10^3/uL (4.4-10.8)
[2023-05-18 04:06] LABS: Basophils % (auto) 0.7 % (0.0-2.0); Eosinophils # (auto) 0.8 10 ^3/uL (0-0.8); Hematocrit 23.2 % (36.0-46.0); Hemoglobin 7.8 g/dL (12.2-16.2); Lymphocytes % (auto) 9.5 % (10.0-50.0); Mean Corpuscular Hemoglobin 30.5 pg (28.0-32.0); Mean Corpuscular Hgb Conc. 33.6 g/dL (32.0-36.0); Mean Corpuscular Volume 90.6 fL (80.0-100.0); Monocytes % (auto) 9.5 % (0.0-12.0); Neutrophils # (auto) 7.9 10 ^3/uL (1.6-8.6); Neutrophils % (auto) 73.3 % (37.0-80.0); Red Blood Cells 2.57 10^6/uL (4.0-5.20); Red Cell Distribution Width 17.1 % (11.8-14.3)
[2023-05-18 04:20] LABS: Albumin 3.4 g/dL (3.2-4.8); Alkaline Phosphatase 711 U/L (46-116); Anion Gap 9 (5-15); Aspartate Aminotransferase 171 U/L (13-40); BUN/Creatinine Ratio 11.1 (10.0-20.0); Calcium 9.1 mg/dL (8.7-10.4); Carbon Dioxide 24 mmol/L (20-30); Chloride 100 mmol/L (98-107); Glucose 139 mg/dL (74-106); Magnesium 2.4 mg/dL (1.6-2.6); Potassium 4.3 mmol/L (3.5-5.1); Sodium 133 mmol/L (136-145)
[2023-05-18 04:21] LABS: Bilirubin, Total 0.6 mg/dL (0.2-1.0); Phosphorus 3.4 mg/dL (2.4-5.1); Total Protein 6.9 g/dL (5.7-8.2)
[2023-05-18 04:33] LABS: Alanine Aminotransferase < 9 U/L (7-40); Blood Urea Nitrogen 57 mg/dL (9-23)
[2023-05-18] MEDS: PIPERACILLIN-TAZOB 3.375GM 100 ML IV SCH ×2 (04:41→17:49)
[2023-05-18] MEDS: EPINEPHrine HCL 250 ML IV SCH (05:34)
[2023-05-18] MEDS ORDERED: SODIUM CHL 0.9% 1000 ML BAG XX ONE (07:00)
[2023-05-18 09:05] LABS: Base Excess 2.3 mmol/L (-2.0-2.0)
[2023-05-18] MEDS ORDERED: VANCOMYCIN 500 MG in D5W 5% 100 ML IV ONE (12:00)
[2023-05-18] MEDS: PANTOPRAZOLE 40 MG/10 ML VIAL INJ IV SCH (17:49)
[2023-05-18] MEDS ORDERED: TPN PER PHARMACY IV NR ×11 (20:00)
[2023-05-18] MEDS: NOREPINEPHRINE 8 MG/250ML KIT 250 ML IV SCH (20:15)
[2023-05-18] MEDS ORDERED: EPOETIN ALFA-EPBX 10,000 UNIT/1ML VIAL SC ONE (21:00)
[2023-05-18] MEDS: DOPamine 1600MCG/ML D5W 250 ML IV SCH (21:45)
[2023-05-19] VITALS (120 sets, daily range): BP systolic 101–185; BP diastolic 47–79; PULSE 55–77; RESP 0–17; TEMP 91.9–100.2; O2SAT 94–100
[2023-05-19 04:07] LABS: Basophils # (auto) 0 10 ^3/uL (0-0.2); Lymphocytes # (auto) 0.9 10 ^3/uL (0.4-5.4); Lymphocytes % (auto) 9.1 % (10.0-50.0); Mean Corpuscular Hemoglobin 30.4 pg (28.0-32.0); Monocytes # (auto) 0.9 10 ^3/uL (0-1.3); Nucleated Red Blood Cells % 0.1 %; Red Cell Distribution Width 17.4 % (11.8-14.3); White Blood Cell 9.6 10^3/uL (4.4-10.8)
[2023-05-19 04:09] LABS: Basophils % (auto) 0.4 % (0.0-2.0); Eosinophils # (auto) 0.6 10 ^3/uL (0-0.8); Eosinophils % (auto) 6.4 % (0.0-7.0); Hemoglobin 8.4 g/dL (12.2-16.2); Mean Corpuscular Hgb Conc. 33.4 g/dL (32.0-36.0); Mean Corpuscular Volume 90.9 fL (80.0-100.0); Monocytes % (auto) 9.6 % (0.0-12.0); Neutrophils # (auto) 7.2 10 ^3/uL (1.6-8.6); Neutrophils % (auto) 74.5 % (37.0-80.0); Red Blood Cells 2.75 10^6/uL (4.0-5.20)
[2023-05-19 04:37] LABS: Alanine Aminotransferase < 9 U/L (7-40); Albumin 3.4 g/dL (3.2-4.8); Alkaline Phosphatase 667 U/L (46-116); Anion Gap 9 (5-15); Aspartate Aminotransferase 214 U/L (13-40); Blood Urea Nitrogen 52 mg/dL (9-23); Calcium 9.2 mg/dL (8.7-10.4); Carbon Dioxide 26 mmol/L (20-30); Chloride 100 mmol/L (98-107); Glucose 139 mg/dL (74-106); Magnesium 2.4 mg/dL (1.6-2.6); Potassium 4.6 mmol/L (3.5-5.1); Sodium 135 mmol/L (136-145)
[2023-05-19 04:38] LABS: Bilirubin, Total 0.6 mg/dL (0.2-1.0); Phosphorus 3.8 mg/dL (2.4-5.1); Total Protein 6.9 g/dL (5.7-8.2)
[2023-05-19] MEDS: PIPERACILLIN-TAZOB 3.375GM 100 ML IV SCH ×2 (05:26→17:41)
[2023-05-19] MEDS: ACCU-CHEK COMFORT CURVE STRIP VI SCH ×4 (05:39→23:52)
[2023-05-19] MEDS: InsuLIN REG 1unit/0.01ml Soln (100units/ml) SC SCH ×5 (05:40→23:52)
[2023-05-19] MEDS: EPINEPHrine HCL 250 ML IV SCH (05:41)
[2023-05-19 07:14] LABS: Base Excess 0.2 mmol/L (-2.0-2.0)
[2023-05-19] MEDS: DOPamine 1600MCG/ML D5W 250 ML IV SCH (08:40)
[2023-05-19] MEDS: PANTOPRAZOLE 40 MG/10 ML VIAL INJ IV SCH (17:41)
[2023-05-19] MEDS: NOREPINEPHRINE 8 MG/250ML KIT 250 ML IV SCH (19:54)
[2023-05-19] MEDS ORDERED: TPN PER PHARMACY IV NR ×9 (20:00)
[2023-05-20] VITALS (120 sets, daily range): BP systolic 108–199; BP diastolic 50–81; PULSE 51–83; RESP 0–17; TEMP 96–98.2; O2SAT 95–100
[2023-05-20] MEDS: DOPamine 1600MCG/ML D5W 250 ML IV SCH ×2 (02:34→19:25)
[2023-05-20 04:21] LABS: Albumin 3.3 g/dL (3.2-4.8); Alkaline Phosphatase 722 U/L (46-116); Anion Gap 10 (5-15); Aspartate Aminotransferase 226 U/L (13-40); BUN/Creatinine Ratio 13.6 (10.0-20.0); Calcium 9.1 mg/dL (8.7-10.4); Carbon Dioxide 23 mmol/L (20-30); Chloride 100 mmol/L (98-107); Glucose 131 mg/dL (74-106); Magnesium 2.5 mg/dL (1.6-2.6); Potassium 5.2 mmol/L (3.5-5.1); Sodium 133 mmol/L (136-145)
[2023-05-20 04:22] LABS: Bilirubin, Total 0.7 mg/dL (0.2-1.0); Phosphorus 4.2 mg/dL (2.4-5.1); Total Protein 6.9 g/dL (5.7-8.2)
[2023-05-20 04:44] LABS: Alanine Aminotransferase < 9 U/L (7-40); Blood Urea Nitrogen 71 mg/dL (9-23)
[2023-05-20] MEDS: PIPERACILLIN-TAZOB 3.375GM 100 ML IV SCH ×2 (05:29→17:16)
[2023-05-20] MEDS: EPINEPHrine HCL 250 ML IV SCH (05:29)
[2023-05-20] MEDS: ACCU-CHEK COMFORT CURVE STRIP VI SCH ×3 (05:29→16:54)
[2023-05-20] MEDS: InsuLIN REG 1unit/0.01ml Soln (100units/ml) SC SCH ×3 (05:33→16:54)
[2023-05-20 07:14] LABS: Base Excess -4.4 mmol/L (-2.0-2.0)
[2023-05-20] MEDS ORDERED: SODIUM ZIRCONIUM CYCL 10 GM PAK PO ONE (08:45)
[2023-05-20] MEDS ORDERED: AMINO ACID INFUSION IN D10W 1,000 ML IV NR (10:00)
[2023-05-20] MEDS: PANTOPRAZOLE 40 MG/10 ML VIAL INJ IV SCH (17:15)
[2023-05-20] MEDS ORDERED: TPN PER PHARMACY IV NR ×7 (20:00)
[2023-05-20] MEDS: NOREPINEPHRINE 8 MG/250ML KIT 250 ML IV SCH (20:15)
[2023-05-21] VITALS (113 sets, daily range): BP systolic 90–209; BP diastolic 25–91; PULSE 61–89; RESP 0–18; TEMP 96.3–99.7; O2SAT 94–98
[2023-05-21 04:32] LABS: Alanine Aminotransferase 11 U/L (7-40); Albumin 3.1 g/dL (3.2-4.8); Alkaline Phosphatase 805 U/L (46-116); Anion Gap 11 (5-15); Aspartate Aminotransferase 214 U/L (13-40); BUN/Creatinine Ratio 14.4 (10.0-20.0); Bilirubin, Total 0.7 mg/dL (0.2-1.0); Calcium 8.9 mg/dL (8.7-10.4); Carbon Dioxide 22 mmol/L (20-30); Chloride 98 mmol/L (98-107); Glucose 97 mg/dL (74-106); Magnesium 2.5 mg/dL (1.6-2.6); Phosphorus 5.2 mg/dL (2.4-5.1); Potassium 5.4 mmol/L (3.5-5.1); Sodium 131 mmol/L (136-145)
[2023-05-21 04:33] LABS: Total Protein 6.6 g/dL (5.7-8.2)
[2023-05-21 04:46] LABS: Blood Urea Nitrogen 86 mg/dL (9-23)
[2023-05-21] MEDS: PIPERACILLIN-TAZOB 3.375GM 100 ML IV SCH ×2 (05:30→18:05)
[2023-05-21] MEDS: EPINEPHrine HCL 250 ML IV SCH (05:31)
[2023-05-21] MEDS: ACCU-CHEK COMFORT CURVE STRIP VI SCH ×5 (05:31→23:31)
[2023-05-21] MEDS: InsuLIN REG 1unit/0.01ml Soln (100units/ml) SC SCH ×5 (05:31→23:33)
[2023-05-21] MEDS ORDERED: SODIUM CHL 0.9% 1000 ML BAG XX ONE (05:45)
[2023-05-21 08:16] LABS: Base Excess -0.1 mmol/L (-2.0-2.0)
[2023-05-21] MEDS: DOPamine 1600MCG/ML D5W 250 ML IV SCH (11:31)
[2023-05-21] MEDS ORDERED: VANCOMYCIN 750mg/250ml 250 ML IV ONE (18:00)
[2023-05-21] MEDS: PANTOPRAZOLE 40 MG/10 ML VIAL INJ IV SCH (18:05)
[2023-05-21] MEDS ORDERED: TPN PER PHARMACY IV NR ×6 (20:00)
[2023-05-21] MEDS: NOREPINEPHRINE 8 MG/250ML KIT 250 ML IV SCH (20:15)
[2023-05-22] VITALS (120 sets, daily range): BP systolic 85–168; BP diastolic 37–69; PULSE 57–68; RESP 0–18; TEMP 97–98.2; O2SAT 96–99
[2023-05-22] MEDS: DOPamine 1600MCG/ML D5W 250 ML IV SCH ×2 (03:23→20:21)
[2023-05-22 04:32] LABS: Alanine Aminotransferase 23 U/L (7-40); Albumin 3.1 g/dL (3.2-4.8); Alkaline Phosphatase 989 U/L (46-116); Anion Gap 10 (5-15); Aspartate Aminotransferase 237 U/L (13-40); Bilirubin, Total 0.6 mg/dL (0.2-1.0); Calcium 8.8 mg/dL (8.5-10.1); Carbon Dioxide 24 mmol/L (20-30); Chloride 98 mmol/L (98-107); Glucose 152 mg/dL (74-106); Phosphorus 4.8 mg/dL (2.4-5.1); Potassium 4.8 mmol/L (3.5-5.1); Sodium 132 mmol/L (136-145); Total Protein 6.8 g/dL (5.7-8.2); Triglycerides 61 mg/dL (< 150)
[2023-05-22 04:38] LABS: Blood Urea Nitrogen 74 mg/dL (9-23)
[2023-05-22 04:49] LABS: Magnesium 2.4 mg/dL (1.6-2.6)
[2023-05-22] MEDS: EPINEPHrine HCL 250 ML IV SCH (06:00)
[2023-05-22] MEDS: ACCU-CHEK COMFORT CURVE STRIP VI SCH ×3 (06:18→18:39)
[2023-05-22] MEDS: InsuLIN REG 1unit/0.01ml Soln (100units/ml) SC SCH ×3 (06:23→18:46)
[2023-05-22] MEDS: PANTOPRAZOLE 40 MG/10 ML VIAL INJ IV SCH (18:39)
[2023-05-22] MEDS ORDERED: TPN PER PHARMACY IV NR ×7 (20:00)
[2023-05-22] MEDS: NOREPINEPHRINE 8 MG/250ML KIT 250 ML IV SCH (20:15)
[2023-05-23] VITALS (116 sets, daily range): BP systolic 94–173; BP diastolic 41–74; PULSE 59–77; RESP 0–13; TEMP 97.5–98.1; O2SAT 94–99
[2023-05-23 04:49] LABS: Basophils # (auto) 0.1 10 ^3/uL (0-0.2); Hemoglobin 7.6 g/dL (12.2-16.2)
[2023-05-23 04:51] LABS: Basophils % (auto) 1.3 % (0.0-2.0); Eosinophils # (auto) 0.7 10 ^3/uL (0-0.8); Eosinophils % (auto) 7.1 % (0.0-7.0); Hematocrit 22.7 % (36.0-46.0); Lymphocytes % (auto) 9.8 % (10.0-50.0); Mean Corpuscular Hemoglobin 30.1 pg (28.0-32.0); Mean Corpuscular Hgb Conc. 33.4 g/dL (32.0-36.0); Monocytes # (auto) 0.7 10 ^3/uL (0-1.3); Monocytes % (auto) 6.6 % (0.0-12.0); Neutrophils # (auto) 7.7 10 ^3/uL (1.6-8.6); Neutrophils % (auto) 75.2 % (37.0-80.0); Red Blood Cells 2.53 10^6/uL (4.0-5.20); Red Cell Distribution Width 17.3 % (11.8-14.3); White Blood Cell 10.2 10^3/uL (4.4-10.8)
[2023-05-23 05:12] LABS: Alanine Aminotransferase 26 U/L (7-40); Albumin 3.1 g/dL (3.2-4.8); Anion Gap 12 (5-15); Aspartate Aminotransferase 243 U/L (13-40); BUN/Creatinine Ratio 15.2 (10.0-20.0); Calcium 8.9 mg/dL (8.7-10.4); Carbon Dioxide 21 mmol/L (20-30); Chloride 97 mmol/L (98-107); Glucose 99 mg/dL (74-106); Magnesium 2.3 mg/dL (1.6-2.6); Sodium 130 mmol/L (136-145)
[2023-05-23 05:13] LABS: Bilirubin, Total 0.6 mg/dL (0.2-1.0); Phosphorus 5.5 mg/dL (2.4-5.1); Total Protein 6.9 g/dL (5.7-8.2)
[2023-05-23 05:19] LABS: Alkaline Phosphatase 1063 U/L (46-116)
[2023-05-23 05:28] LABS: Blood Urea Nitrogen 93 mg/dL (9-23)
[2023-05-23] MEDS: EPINEPHrine HCL 250 ML IV SCH (05:52)
[2023-05-23] MEDS: ACCU-CHEK COMFORT CURVE STRIP VI SCH ×5 (05:53→23:30)
[2023-05-23] MEDS: InsuLIN REG 1unit/0.01ml Soln (100units/ml) SC SCH ×5 (05:53→23:30)
[2023-05-23] MEDS ORDERED: SODIUM CHL 0.9% 1000 ML BAG XX ONE (07:00)
[2023-05-23 07:40] LABS: Base Excess -7.8 mmol/L (-2.0-2.0)
[2023-05-23] MEDS: DOPamine 1600MCG/ML D5W 250 ML IV SCH (17:13)
[2023-05-23] MEDS: PANTOPRAZOLE 40 MG/10 ML VIAL INJ IV SCH (17:34)
[2023-05-23] MEDS ORDERED: VANCOMYCIN 1GM/250ML 250 ML IV ONE (18:00)
[2023-05-23] MEDS: NOREPINEPHRINE 8 MG/250ML KIT 250 ML IV SCH (19:52)
[2023-05-23] MEDS ORDERED: TPN PER PHARMACY IV NR ×7 (20:00)
[2023-05-23] MEDS ORDERED: EPOETIN ALFA-EPBX 10,000 UNIT/1ML VIAL SC ONE (21:00)
[2023-05-24] VITALS (119 sets, daily range): BP systolic 89–158; BP diastolic 43–70; PULSE 53–89; RESP 0–16; TEMP 95.4–98.6; O2SAT 96–100
[2023-05-24 04:22] LABS: Alanine Aminotransferase 35 U/L (7-40); Anion Gap 11 (5-15); Aspartate Aminotransferase 255 U/L (13-40); Calcium 8.5 mg/dL (8.7-10.4); Carbon Dioxide 20 mmol/L (20-30); Chloride 97 mmol/L (98-107); Glucose 113 mg/dL (74-106); Magnesium 2.3 mg/dL (1.6-2.6); Potassium 5.1 mmol/L (3.5-5.1); Sodium 128 mmol/L (136-145)
[2023-05-24 04:23] LABS: Bilirubin, Total 0.6 mg/dL (0.2-1.0); Phosphorus 5.7 mg/dL (2.4-5.1); Total Protein 6.9 g/dL (5.7-8.2)
[2023-05-24] MEDS ORDERED: SODIUM CHL 0.9% 1000 ML BAG XX ONE (04:30)
[2023-05-24 04:31] LABS: Alkaline Phosphatase 1158 U/L (46-116)
[2023-05-24 04:40] LABS: Blood Urea Nitrogen 115 mg/dL (9-23)
[2023-05-24] MEDS: DOPamine 1600MCG/ML D5W 250 ML IV SCH ×3 (04:57→23:19)
[2023-05-24] MEDS: EPINEPHrine HCL 250 ML IV SCH (05:20)
[2023-05-24] MEDS: ACCU-CHEK COMFORT CURVE STRIP VI SCH ×4 (05:20→23:28)
[2023-05-24] MEDS: InsuLIN REG 1unit/0.01ml Soln (100units/ml) SC SCH ×4 (05:24→23:28)
[2023-05-24 10:02] LABS: Base Excess 0.5 mmol/L (-2.0-2.0)
[2023-05-24] MEDS: PANTOPRAZOLE 40 MG/10 ML VIAL INJ IV SCH (17:06)
[2023-05-24] MEDS: NOREPINEPHRINE 8 MG/250ML KIT 250 ML IV SCH (19:25)
[2023-05-24] MEDS ORDERED: DOPamine 1600MCG/ML D5W 250 ML IV ONE (19:35)
[2023-05-24] MEDS ORDERED: TPN PER PHARMACY IV NR ×7 (20:00)
[2023-05-25] VITALS (107 sets, daily range): BP systolic 87–167; BP diastolic 45–74; PULSE 51–76; RESP 0–17; TEMP 95.4–98.9; O2SAT 96–100
[2023-05-25 04:40] LABS: Alanine Aminotransferase 63 U/L (7-40); Anion Gap 10 (5-15); BUN/Creatinine Ratio 16.2 (10.0-20.0); Calcium 8.7 mg/dL (8.7-10.4); Carbon Dioxide 26 mmol/L (20-30); Chloride 97 mmol/L (98-107); Glucose 134 mg/dL (74-106); Potassium 3.9 mmol/L (3.5-5.1)
[2023-05-25 04:41] LABS: Aspartate Aminotransferase 344 U/L (13-40); Bilirubin, Total 0.6 mg/dL (0.2-1.0); Phosphorus 4.2 mg/dL (2.4-5.1)
[2023-05-25 04:42] LABS: Total Protein 6.8 g/dL (5.7-8.2)
[2023-05-25 04:49] LABS: Alkaline Phosphatase 1121 U/L (46-116)
[2023-05-25 05:17] LABS: Sodium 133 mmol/L (136-145)
[2023-05-25 05:18] LABS: Blood Urea Nitrogen 81 mg/dL (9-23)
[2023-05-25] MEDS: ACCU-CHEK COMFORT CURVE STRIP VI SCH ×3 (05:31→18:00)
[2023-05-25] MEDS: InsuLIN REG 1unit/0.01ml Soln (100units/ml) SC SCH ×3 (05:34→18:00)
[2023-05-25] MEDS: EPINEPHrine HCL 250 ML IV SCH (05:34)
[2023-05-25] MEDS: PANTOPRAZOLE 40 MG/10 ML VIAL INJ IV SCH (16:56)
[2023-05-25] MEDS ORDERED: VANCOMYCIN 750mg/250ml 250 ML IV ONE (18:00)
[2023-05-25] MEDS: DOPamine 1600MCG/ML D5W 250 ML IV SCH (19:03)
[2023-05-25] MEDS ORDERED: TPN PER PHARMACY IV NR ×9 (20:00)
[2023-05-25] MEDS: NOREPINEPHRINE 8 MG/250ML KIT 250 ML IV SCH (20:15)
[2023-05-26] VITALS (115 sets, daily range): BP systolic 82–160; BP diastolic 39–84; PULSE 58–87; RESP 0–20; TEMP 97.9–99.5; O2SAT 95–100
[2023-05-26 04:37] LABS: Hematocrit 23.7 % (36.0-46.0)
[2023-05-26 05:06] LABS: Alanine Aminotransferase 100 U/L (7-40); Albumin 2.9 g/dL (3.2-4.8); Anion Gap 12 (5-15); Aspartate Aminotransferase 413 U/L (13-40); BUN/Creatinine Ratio 16.7 (10.0-20.0); Bilirubin, Total 0.5 mg/dL (0.2-1.0); Calcium 8.7 mg/dL (8.7-10.4); Carbon Dioxide 23 mmol/L (20-30); Chloride 97 mmol/L (98-107); Glucose 129 mg/dL (74-106); Phosphorus 4.1 mg/dL (2.4-5.1); Potassium 4.1 mmol/L (3.5-5.1); Sodium 132 mmol/L (136-145); Total Protein 6.7 g/dL (5.7-8.2)
[2023-05-26 05:11] LABS: Alkaline Phosphatase 1260 U/L (46-116)
[2023-05-26 05:26] LABS: Blood Urea Nitrogen 95 mg/dL (9-23)
[2023-05-26] MEDS: EPINEPHrine HCL 250 ML IV SCH (05:33)
[2023-05-26] MEDS: ACCU-CHEK COMFORT CURVE STRIP VI SCH ×5 (06:09→23:32)
[2023-05-26] MEDS: InsuLIN REG 1unit/0.01ml Soln (100units/ml) SC SCH ×5 (06:11→23:33)
[2023-05-26] MEDS ORDERED: SODIUM CHL 0.9% 1000 ML BAG XX ONE (07:00)
[2023-05-26 08:39] LABS: Base Excess -1.3 mmol/L (-2.0-2.0)
[2023-05-26 08:46] LABS: Basophils # (auto) 0.2 10 ^3/uL (0-0.2); Hemoglobin 7.6 g/dL (12.2-16.2); Lymphocytes % (auto) 11.1 % (10.0-50.0); Monocytes # (auto) 0.8 10 ^3/uL (0-1.3); Neutrophils # (auto) 6.4 10 ^3/uL (1.6-8.6); Nucleated Red Blood Cells % 0.2 %; Red Cell Distribution Width 17.1 % (11.8-14.3)
[2023-05-26 08:49] LABS: Basophils % (auto) 2.3 % (0.0-2.0); Eosinophils % (auto) 10.4 % (0.0-7.0); Hematocrit 23.2 % (36.0-46.0); Lymphocytes # (auto) 1.1 10 ^3/uL (0.4-5.4); Mean Corpuscular Hemoglobin 29.3 pg (28.0-32.0); Mean Corpuscular Hgb Conc. 32.8 g/dL (32.0-36.0); Mean Corpuscular Volume 89.4 fL (80.0-100.0); Monocytes % (auto) 8.7 % (0.0-12.0); Neutrophils % (auto) 67.5 % (37.0-80.0); White Blood Cell 9.5 10^3/uL (4.4-10.8)
[2023-05-26] MEDS: DOPamine 1600MCG/ML D5W 250 ML IV SCH (10:30)
[2023-05-26] MEDS: PANTOPRAZOLE 40 MG/10 ML VIAL INJ IV SCH (16:46)
[2023-05-26] MEDS ORDERED: TPN PER PHARMACY IV NR ×10 (20:00)
[2023-05-26] MEDS: NOREPINEPHRINE 8 MG/250ML KIT 250 ML IV SCH (20:15)
[2023-05-26] MEDS ORDERED: EPOETIN ALFA-EPBX 10,000 UNIT/1ML VIAL SC ONE (21:00)
[2023-05-27] VITALS (110 sets, daily range): BP systolic 86–155; BP diastolic 39–81; PULSE 59–80; RESP 10–99; TEMP 97.1–98.9; O2SAT 95–100
[2023-05-27] MEDS: DOPamine 1600MCG/ML D5W 250 ML IV SCH ×2 (01:57→16:59)
[2023-05-27 04:12] LABS: Basophils # (auto) 0.2 10 ^3/uL (0-0.2); Basophils % (auto) 2.1 % (0.0-2.0); Eosinophils # (auto) 0.8 10 ^3/uL (0-0.8)
[2023-05-27 04:14] LABS: Eosinophils % (auto) 8.7 % (0.0-7.0); Hematocrit 23.4 % (36.0-46.0); Hemoglobin 7.8 g/dL (12.2-16.2); Lymphocytes # (auto) 1.3 10 ^3/uL (0.4-5.4); Mean Corpuscular Hemoglobin 29.6 pg (28.0-32.0); Mean Corpuscular Hgb Conc. 33.4 g/dL (32.0-36.0); Mean Corpuscular Volume 88.6 fL (80.0-100.0); Monocytes # (auto) 0.7 10 ^3/uL (0-1.3); Monocytes % (auto) 7.9 % (0.0-12.0); Neutrophils # (auto) 6.3 10 ^3/uL (1.6-8.6); Neutrophils % (auto) 67.3 % (37.0-80.0); Red Blood Cells 2.64 10^6/uL (4.0-5.20); Red Cell Distribution Width 17.1 % (11.8-14.3); White Blood Cell 9.4 10^3/uL (4.4-10.8)
[2023-05-27 04:40] LABS: Alanine Aminotransferase 119 U/L (7-40); Albumin 2.9 g/dL (3.2-4.8); Anion Gap 11 (5-15); Aspartate Aminotransferase 426 U/L (13-40); BUN/Creatinine Ratio 17.4 (10.0-20.0); Calcium 8.7 mg/dL (8.7-10.4); Carbon Dioxide 24 mmol/L (20-30); Chloride 97 mmol/L (98-107); Glucose 112 mg/dL (74-106); Potassium 4.6 mmol/L (3.5-5.1); Sodium 132 mmol/L (136-145)
[2023-05-27 04:41] LABS: Bilirubin, Total 0.5 mg/dL (0.2-1.0); Phosphorus 4.7 mg/dL (2.4-5.1); Total Protein 6.8 g/dL (5.7-8.2)
[2023-05-27 04:49] LABS: Alkaline Phosphatase 1352 U/L (46-116)
[2023-05-27 06:00] LABS: Blood Urea Nitrogen 112 mg/dL (9-23)
[2023-05-27] MEDS: InsuLIN REG 1unit/0.01ml Soln (100units/ml) SC SCH ×4 (06:00→23:51)
[2023-05-27] MEDS: EPINEPHrine HCL 250 ML IV SCH (06:00)
[2023-05-27] MEDS: ACCU-CHEK COMFORT CURVE STRIP VI SCH ×4 (06:09→23:51)
[2023-05-27] MEDS: PANTOPRAZOLE 40 MG/10 ML VIAL INJ IV SCH (16:58)
[2023-05-27] MEDS: NOREPINEPHRINE 8 MG/250ML KIT 250 ML IV SCH (20:15)
[2023-05-27] MEDS: TPN PER PHARMACY IV NR ×8 (20:37)
[2023-05-28] VITALS (111 sets, daily range): BP systolic 63–163; BP diastolic 42–82; PULSE 54–77; RESP 0–17; TEMP 97.1–99.4; O2SAT 97–100
[2023-05-28 04:32] LABS: Basophils # (auto) 0.2 10 ^3/uL (0-0.2); Eosinophils # (auto) 0.8 10 ^3/uL (0-0.8); Red Blood Cells 2.51 10^6/uL (4.0-5.20); White Blood Cell 7.9 10^3/uL (4.4-10.8)
[2023-05-28 04:34] LABS: Basophils % (auto) 2.3 % (0.0-2.0); Eosinophils % (auto) 9.6 % (0.0-7.0); Hematocrit 22.2 % (36.0-46.0); Hemoglobin 7.6 g/dL (12.2-16.2); Lymphocytes % (auto) 12.8 % (10.0-50.0); Mean Corpuscular Hemoglobin 30.2 pg (28.0-32.0); Mean Corpuscular Hgb Conc. 34.1 g/dL (32.0-36.0); Mean Corpuscular Volume 88.7 fL (80.0-100.0); Monocytes # (auto) 0.8 10 ^3/uL (0-1.3); Monocytes % (auto) 9.7 % (0.0-12.0); Neutrophils # (auto) 5.2 10 ^3/uL (1.6-8.6); Neutrophils % (auto) 65.6 % (37.0-80.0); Nucleated Red Blood Cells % 0.1 %; Red Cell Distribution Width 17.4 % (11.8-14.3)
[2023-05-28 04:52] LABS: Alanine Aminotransferase 183 U/L (7-40); Albumin 2.8 g/dL (3.2-4.8); Anion Gap 8 (5-15); Aspartate Aminotransferase 622 U/L (13-40); BUN/Creatinine Ratio 16.3 (10.0-20.0); Calcium 8.6 mg/dL (8.7-10.4); Carbon Dioxide 28 mmol/L (20-30); Chloride 99 mmol/L (98-107); Glucose 122 mg/dL (74-106); Magnesium 1.9 mg/dL (1.6-2.6); Potassium 3.8 mmol/L (3.5-5.1); Sodium 135 mmol/L (136-145)
[2023-05-28 04:53] LABS: Bilirubin, Total 0.4 mg/dL (0.2-1.0); Phosphorus 3.6 mg/dL (2.4-5.1); Total Protein 6.6 g/dL (5.7-8.2)
[2023-05-28 05:01] LABS: Alkaline Phosphatase 1548 U/L (46-116)
[2023-05-28 05:26] LABS: Blood Urea Nitrogen 76 mg/dL (9-23)
[2023-05-28] MEDS: ACCU-CHEK COMFORT CURVE STRIP VI SCH ×3 (05:52→17:28)
[2023-05-28] MEDS: EPINEPHrine HCL 250 ML IV SCH (05:52)
[2023-05-28] MEDS: InsuLIN REG 1unit/0.01ml Soln (100units/ml) SC SCH ×3 (05:53→17:28)
[2023-05-28 06:03] LABS: Triglycerides 67 mg/dL (< 150)
[2023-05-28] MEDS: PANTOPRAZOLE 40 MG/10 ML VIAL INJ IV SCH (16:28)
[2023-05-28] MEDS ORDERED: VANCOMYCIN 750mg/250ml 250 ML IV ONE (18:00)
[2023-05-28] MEDS: TPN PER PHARMACY IV NR ×8 (19:58)
[2023-05-28] MEDS ORDERED: TPN PER PHARMACY IV NR ×9 (20:00)
[2023-05-28] MEDS: DOPamine 1600MCG/ML D5W 250 ML IV SCH (20:00)
[2023-05-28] MEDS: NOREPINEPHRINE 8 MG/250ML KIT 250 ML IV SCH (20:15)
[2023-05-29] VITALS (113 sets, daily range): BP systolic 71–143; BP diastolic 36–68; PULSE 52–98; RESP 0–29; TEMP 96.8–98.8; O2SAT 97–100
[2023-05-29] MEDS: ACCU-CHEK COMFORT CURVE STRIP VI SCH ×4 (00:08→17:43)
[2023-05-29 04:34] LABS: Alanine Aminotransferase 201 U/L (7-40); Albumin 2.8 g/dL (3.2-4.8); Anion Gap 9 (5-15); Aspartate Aminotransferase 622 U/L (13-40); BUN/Creatinine Ratio 15.5 (10.0-20.0); Calcium 8.6 mg/dL (8.7-10.4); Carbon Dioxide 26 mmol/L (20-30); Chloride 100 mmol/L (98-107); Glucose 112 mg/dL (74-106); Magnesium 2.1 mg/dL (1.6-2.6); Potassium 3.9 mmol/L (3.5-5.1); Sodium 135 mmol/L (136-145)
[2023-05-29 04:35] LABS: Bilirubin, Total 0.4 mg/dL (0.2-1.0); Phosphorus 4.1 mg/dL (2.4-5.1); Total Protein 6.4 g/dL (5.7-8.2)
[2023-05-29 04:41] LABS: Alkaline Phosphatase 1615 U/L (46-116)
[2023-05-29 05:02] LABS: Blood Urea Nitrogen 83 mg/dL (9-23)
[2023-05-29] MEDS: EPINEPHrine HCL 250 ML IV SCH (06:00)
[2023-05-29] MEDS: InsuLIN REG 1unit/0.01ml Soln (100units/ml) SC SCH ×4 (06:00→17:47)
[2023-05-29 07:16] LABS: Base Excess 1.5 mmol/L (-2.0-2.0)
[2023-05-29] MEDS: DOPamine 1600MCG/ML D5W 250 ML IV SCH (12:40)
[2023-05-29] MEDS: PANTOPRAZOLE 40 MG/10 ML VIAL INJ IV SCH (17:44)
[2023-05-29] MEDS ORDERED: TPN PER PHARMACY IV NR ×9 (20:00)
[2023-05-29] MEDS: NOREPINEPHRINE 8 MG/250ML KIT 250 ML IV SCH (20:15)
[2023-05-30] VITALS (115 sets, daily range): BP systolic 76–188; BP diastolic 39–85; PULSE 49–75; RESP 11–18; TEMP 94.3–98.6; O2SAT 98–100
[2023-05-30] MEDS: DOPamine 1600MCG/ML D5W 250 ML IV SCH (05:04)
[2023-05-30 05:10] LABS: Alanine Aminotransferase 231 U/L (7-40); Albumin 2.9 g/dL (3.2-4.8); Anion Gap 13 (5-15); Aspartate Aminotransferase 661 U/L (13-40); Calcium 8.5 mg/dL (8.7-10.4); Carbon Dioxide 24 mmol/L (20-30); Chloride 99 mmol/L (98-107); Glucose 114 mg/dL (74-106); Magnesium 2.2 mg/dL (1.6-2.6); Phosphorus 4.3 mg/dL (2.4-5.1); Potassium 4.3 mmol/L (3.5-5.1); Sodium 136 mmol/L (136-145)
[2023-05-30 05:11] LABS: Bilirubin, Total 0.3 mg/dL (0.2-1.0); Total Protein 6.7 g/dL (5.7-8.2)
[2023-05-30 05:18] LABS: Alkaline Phosphatase 1586 U/L (46-116); Blood Urea Nitrogen 94 mg/dL (9-23)
[2023-05-30 05:28] LABS: BUN/Creatinine Ratio 15.9 (10.0-20.0)
[2023-05-30] MEDS: ACCU-CHEK COMFORT CURVE STRIP VI SCH ×5 (05:54→23:55)
[2023-05-30] MEDS: InsuLIN REG 1unit/0.01ml Soln (100units/ml) SC SCH ×5 (05:54→23:55)
[2023-05-30] MEDS: EPINEPHrine HCL 250 ML IV SCH (05:54)
[2023-05-30 07:31] LABS: Base Excess 1.2 mmol/L (-2.0-2.0)
[2023-05-30] MEDS ORDERED: HEPARIN SODIUM (PORCINE) 5000 UNITS/ML 1ML VIAL IV ONE (09:45)
[2023-05-30] MEDS: PANTOPRAZOLE 40 MG/10 ML VIAL INJ IV SCH (20:07)
[2023-05-30] MEDS: TPN PER PHARMACY IV NR ×18 (20:07→22:53)
[2023-05-30] MEDS: NOREPINEPHRINE 8 MG/250ML KIT 250 ML IV SCH (20:15)
[2023-05-31] VITALS (114 sets, daily range): BP systolic 97–173; BP diastolic 46–89; PULSE 50–77; RESP 0–18; TEMP 97.5–98.5; O2SAT 98–100
[2023-05-31] MEDS: DOPamine 1600MCG/ML D5W 250 ML IV SCH ×2 (00:16→14:40)
[2023-05-31] MEDS: ACCU-CHEK COMFORT CURVE STRIP VI SCH ×4 (05:32→23:51)
[2023-05-31] MEDS: InsuLIN REG 1unit/0.01ml Soln (100units/ml) SC SCH ×4 (05:32→23:51)
[2023-05-31] MEDS: EPINEPHrine HCL 250 ML IV SCH (06:00)
[2023-05-31 06:05] LABS: Alanine Aminotransferase 189 U/L (7-40); Albumin 3.1 g/dL (3.2-4.8); Anion Gap 8 (5-15); Aspartate Aminotransferase 508 U/L (13-40); BUN/Creatinine Ratio 16.7 (10.0-20.0); Calcium 8.7 mg/dL (8.7-10.4); Carbon Dioxide 30 mmol/L (20-30); Chloride 100 mmol/L (98-107); Glucose 121 mg/dL (74-106); Potassium 3.6 mmol/L (3.5-5.1); Sodium 138 mmol/L (136-145)
[2023-05-31 06:06] LABS: Bilirubin, Total 0.4 mg/dL (0.2-1.0); Phosphorus 3.2 mg/dL (2.4-5.1); Total Protein 6.7 g/dL (5.7-8.2)
[2023-05-31 06:07] LABS: Blood Urea Nitrogen 74 mg/dL (9-23)
[2023-05-31 06:14] LABS: Alkaline Phosphatase 1304 U/L (46-116)
[2023-05-31 07:55] LABS: Base Excess 3.6 mmol/L (-2.0-2.0)
[2023-05-31] MEDS: PANTOPRAZOLE 40 MG/10 ML VIAL INJ IV SCH (18:08)
[2023-05-31] MEDS ORDERED: TPN PER PHARMACY IV NR ×10 (20:00)
[2023-05-31] MEDS: NOREPINEPHRINE 8 MG/250ML KIT 250 ML IV SCH (20:15)
[2023-06-01] VITALS (115 sets, daily range): BP systolic 83–184; BP diastolic 43–91; PULSE 49–94; RESP 0–42; TEMP 94–99.9; O2SAT 97–100
[2023-06-01 05:55] LABS: Alanine Aminotransferase 165 U/L (7-40); Anion Gap 10 (5-15); BUN/Creatinine Ratio 17.4 (10.0-20.0); Calcium 8.8 mg/dL (8.7-10.4); Carbon Dioxide 29 mmol/L (20-30); Chloride 100 mmol/L (98-107); Glucose 133 mg/dL (74-106); Magnesium 2.3 mg/dL (1.6-2.6); Potassium 3.6 mmol/L (3.5-5.1); Sodium 139 mmol/L (136-145)
[2023-06-01 05:56] LABS: Aspartate Aminotransferase 412 U/L (13-40); Bilirubin, Total 0.4 mg/dL (0.2-1.0); Phosphorus 3.8 mg/dL (2.4-5.1); Total Protein 6.7 g/dL (5.7-8.2)
[2023-06-01] MEDS: EPINEPHrine HCL 250 ML IV SCH (06:00)
[2023-06-01] MEDS: InsuLIN REG 1unit/0.01ml Soln (100units/ml) SC SCH ×3 (06:00→18:00)
[2023-06-01 06:03] LABS: Alkaline Phosphatase 1262 U/L (46-116)
[2023-06-01] MEDS: ACCU-CHEK COMFORT CURVE STRIP VI SCH ×3 (06:29→18:00)
[2023-06-01 07:11] LABS: Blood Urea Nitrogen 88 mg/dL (9-23)
[2023-06-01] MEDS: DOPamine 1600MCG/ML D5W 250 ML IV SCH ×2 (07:20→19:41)
[2023-06-01 07:30] LABS: Base Excess 3.9 mmol/L (-2.0-2.0)
[2023-06-01] MEDS: PANTOPRAZOLE 40 MG/10 ML VIAL INJ IV SCH (17:00)
[2023-06-01] MEDS: NOREPINEPHRINE 8 MG/250ML KIT 250 ML IV SCH (19:42)
[2023-06-01] MEDS ORDERED: TPN PER PHARMACY IV NR ×20 (20:00)
[2023-06-02] VITALS (119 sets, daily range): BP systolic 85–189; BP diastolic 44–96; PULSE 53–91; RESP 0–15; TEMP 97–99; O2SAT 95–99
[2023-06-02] MEDS: ACCU-CHEK COMFORT CURVE STRIP VI SCH ×5 (00:19→23:55)
[2023-06-02 05:03] LABS: Alanine Aminotransferase 129 U/L (7-40); Albumin 2.9 g/dL (3.2-4.8); Anion Gap 10 (5-15); Aspartate Aminotransferase 360 U/L (13-40); BUN/Creatinine Ratio 18.2 (10.0-20.0); Bilirubin, Total 0.3 mg/dL (0.2-1.0); Calcium 8.6 mg/dL (8.7-10.4); Carbon Dioxide 28 mmol/L (20-30); Chloride 101 mmol/L (98-107); Glucose 106 mg/dL (74-106); Magnesium 2.3 mg/dL (1.6-2.6); Phosphorus 3.8 mg/dL (2.4-5.1); Potassium 3.9 mmol/L (3.5-5.1); Sodium 139 mmol/L (136-145); Total Protein 6.7 g/dL (5.7-8.2)
[2023-06-02 05:06] LABS: Blood Urea Nitrogen 104 mg/dL (9-23)
[2023-06-02] MEDS: InsuLIN REG 1unit/0.01ml Soln (100units/ml) SC SCH ×5 (06:00→23:57)
[2023-06-02] MEDS: EPINEPHrine HCL 250 ML IV SCH (06:00)
[2023-06-02 07:55] LABS: Alkaline Phosphatase 1174 U/L (46-116)
[2023-06-02 08:05] LABS: Base Excess 3.1 mmol/L (-2.0-2.0)
[2023-06-02] MEDS: DOPamine 1600MCG/ML D5W 250 ML IV SCH (16:40)
[2023-06-02] MEDS: PANTOPRAZOLE 40 MG/10 ML VIAL INJ IV SCH (17:15)
[2023-06-02] MEDS ORDERED: TPN PER PHARMACY IV NR ×11 (20:00)
[2023-06-02] MEDS: NOREPINEPHRINE 8 MG/250ML KIT 250 ML IV SCH (20:15)
[2023-06-03] VITALS (118 sets, daily range): BP systolic 85–199; BP diastolic 46–96; PULSE 47–89; RESP 0–17; TEMP 97.2–98.5; O2SAT 93–100
[2023-06-03 04:38] LABS: Alanine Aminotransferase 131 U/L (7-40); Albumin 2.9 g/dL (3.2-4.8); Anion Gap 12 (5-15); Aspartate Aminotransferase 394 U/L (13-40); BUN/Creatinine Ratio 17.9 (10.0-20.0); Bilirubin, Total 0.3 mg/dL (0.2-1.0); Calcium 8.4 mg/dL (8.7-10.4); Carbon Dioxide 27 mmol/L (20-30); Chloride 102 mmol/L (98-107); Glucose 115 mg/dL (74-106); Magnesium 2.4 mg/dL (1.6-2.6); Phosphorus 4.2 mg/dL (2.4-5.1); Potassium 4.2 mmol/L (3.5-5.1); Sodium 141 mmol/L (136-145); Total Protein 6.7 g/dL (5.7-8.2)
[2023-06-03 04:41] LABS: Blood Urea Nitrogen 113 mg/dL (9-23)
[2023-06-03 04:45] LABS: Alkaline Phosphatase 1330 U/L (46-116)
[2023-06-03] MEDS: ACCU-CHEK COMFORT CURVE STRIP VI SCH ×3 (05:55→18:16)
[2023-06-03] MEDS: InsuLIN REG 1unit/0.01ml Soln (100units/ml) SC SCH ×3 (05:56→18:00)
[2023-06-03] MEDS: EPINEPHrine HCL 250 ML IV SCH (06:00)
[2023-06-03 08:20] LABS: Base Excess 1.2 mmol/L (-2.0-2.0)
[2023-06-03] MEDS: DOPamine 1600MCG/ML D5W 250 ML IV SCH (09:20)
[2023-06-03] MEDS: PANTOPRAZOLE 40 MG/10 ML VIAL INJ IV SCH (18:12)
[2023-06-03] MEDS ORDERED: TPN PER PHARMACY IV NR ×9 (20:00)
[2023-06-03] MEDS: NOREPINEPHRINE 8 MG/250ML KIT 250 ML IV SCH (20:15)
[2023-06-04] VITALS (79 sets, daily range): BP systolic 0–165; BP diastolic 0–77; PULSE 0–96; RESP 0–32; TEMP 97.3–97.6; O2SAT 93–100
[2023-06-04] MEDS: DOPamine 1600MCG/ML D5W 250 ML IV SCH (02:00)
[2023-06-04 04:39] LABS: Alanine Aminotransferase 127 U/L (7-40); Albumin 2.9 g/dL (3.2-4.8); Anion Gap 13 (5-15); Aspartate Aminotransferase 359 U/L (13-40); BUN/Creatinine Ratio 17.5 (10.0-20.0); Bilirubin, Total 0.3 mg/dL (0.2-1.0); Calcium 8.5 mg/dL (8.7-10.4); Carbon Dioxide 25 mmol/L (20-30); Chloride 103 mmol/L (98-107); Glucose 117 mg/dL (74-106); Magnesium 2.5 mg/dL (1.6-2.6); Phosphorus 4.5 mg/dL (2.4-5.1); Potassium 4.4 mmol/L (3.5-5.1); Sodium 141 mmol/L (136-145); Total Protein 6.7 g/dL (5.7-8.2)
[2023-06-04 04:47] LABS: Alkaline Phosphatase 1175 U/L (46-116)
[2023-06-04 04:57] LABS: Blood Urea Nitrogen 119 mg/dL (9-23)
[2023-06-04] MEDS: EPINEPHrine HCL 250 ML IV SCH (06:00)
[2023-06-04] MEDS: InsuLIN REG 1unit/0.01ml Soln (100units/ml) SC SCH ×3 (06:00→12:00)
[2023-06-04] MEDS: ACCU-CHEK COMFORT CURVE STRIP VI SCH ×3 (06:16→12:00)
[2023-06-04] MEDS ORDERED: LORazepam 2MG/ML-1ML VIAL IV PRN (13:15)
[2023-06-04] MEDS ORDERED: MORPHINE SULFATE INJ 2 MG/ml SYRG IV PRN (13:15)
[2023-06-04] MEDS ORDERED: TPN PER PHARMACY IV NR ×9 (20:00)
== END 2023-06-04 21:31 | DRG 870 ==
LOC: ER 05:19 → EDBD 05:19 → TELE 10:06 → ICU WEST 17:03
PROVIDERS: ADMIT Nurse Practitioner Family; ATTEND Internal Medicine Geriatric Medicine
PROC: 5A1955Z Respiratory Ventilation, Greater than 96 Consecutive Hours (ICD-10-PCS; principal; 2023-05-08)
PROC: 0BH17EZ Insertion of Endotracheal Airway into Trachea, Via Natural or Artificial Opening (ICD-10-PCS; 2023-05-08)
PROC: 06HM33Z Insertion of Infusion Device into Right Femoral Vein, Percutaneous Approach (ICD-10-PCS; 2023-05-08)
PROC: 5A12012 Performance of Cardiac Output, Single, Manual (ICD-10-PCS; 2023-05-08)
PROC: 30233N1 Transfusion of Nonautologous Red Blood Cells into Peripheral Vein, Percutaneous Approach (ICD-10-PCS; 2023-05-08)
PROC: 5A1D70Z Performance of Urinary Filtration, Intermittent, Less than 6 Hours Per Day (ICD-10-PCS; 2023-05-09)
PROC: 5A1D70Z Performance of Urinary Filtration, Intermittent, Less than 6 Hours Per Day (ICD-10-PCS; 2023-05-11)
PROC: 5A1D70Z Performance of Urinary Filtration, Intermittent, Less than 6 Hours Per Day (ICD-10-PCS; 2023-05-14)
PROC: 5A1D70Z Performance of Urinary Filtration, Intermittent, Less than 6 Hours Per Day (ICD-10-PCS; 2023-05-16)
PROC: 5A1D70Z Performance of Urinary Filtration, Intermittent, Less than 6 Hours Per Day (ICD-10-PCS; 2023-05-18)
PROC: 5A1D70Z Performance of Urinary Filtration, Intermittent, Less than 6 Hours Per Day (ICD-10-PCS; 2023-05-21)
PROC: 5A1D70Z Performance of Urinary Filtration, Intermittent, Less than 6 Hours Per Day (ICD-10-PCS; 2023-05-24)
PROC: 5A1D70Z Performance of Urinary Filtration, Intermittent, Less than 6 Hours Per Day (ICD-10-PCS; 2023-05-27)
PROC: 5A1D70Z Performance of Urinary Filtration, Intermittent, Less than 6 Hours Per Day (ICD-10-PCS; 2023-05-30)
DX: A41.9 Sepsis, unspecified organism (principal); G92.8 Other toxic encephalopathy; J18.9 Pneumonia, unspecified organism; N18.6 End stage renal disease; J96.01 Acute respiratory failure with hypoxia; G93.6 Cerebral edema; G93.1 Anoxic brain damage, not elsewhere classified; J98.11 Atelectasis; I50.20 Unspecified systolic (congestive) heart failure; I13.2 Hypertensive heart and chronic kidney disease with heart failure and with stage 5 chronic kidney disease, or end stage renal disease; D64.9 Anemia, unspecified; Z20.822 Contact with and (suspected) exposure to COVID-19; Z51.5 Encounter for palliative care; R57.0 Cardiogenic shock; I46.9 Cardiac arrest, cause unspecified; E66.01 Morbid (severe) obesity due to excess calories; H57.02 Anisocoria; E11.65 Type 2 diabetes mellitus with hyperglycemia; E11.22 Type 2 diabetes mellitus with diabetic chronic kidney disease; R00.1 Bradycardia, unspecified; E87.6 Hypokalemia; Z68.32 Body mass index [BMI] 32.0-32.9, adult; Z66 Do not resuscitate; Z99.2 Dependence on renal dialysis; Z79.4 Long term (current) use of insulin; Z80.3 Family history of malignant neoplasm of breast; Z83.3 Family history of diabetes mellitus
CPT/HCPCS: 36415; 36600; 70450; 70496; 71045; 71250; 74176; 80053; 80061; 80202; 82140; 82270; 82306; 82607; 82746; 82805; 82962; 83036; 83540; 83550; 83605; 83690; 83735; 83880; 83970; 84100; 84443; 84478; 84484; 85014; 85018; 85025; 85379; 85610; 85730; 86850; 86900; 86901; 86920; 87040; 87070; 87081; 87205; 87340; 90935; 93005; 93017; 93306; 93970; 94002; 94003; 94640; 95819; 99291; C9113; G0378; J0171; J0696; J1100; J1642; J1815; J2543; J3480; J7060; J7131; P9047